=== PATIENT | male | born 1990 | race American Indian/Alaskan Native ===

== ENCOUNTER 2021-12-29 17:07 | Emergency (ER) | payer SELFPAY ==
[2021-12-29 18:49] VITALS: BP 122/61
== END 2021-12-29 23:10 | disposition left against medical advice (07) ==
LOC: ED 17:07
DX: T62.91XA Toxic effect of unspecified noxious substance eaten as food, accidental (unintentional), initial encounter (principal); Z53.21 Procedure and treatment not carried out due to patient leaving prior to being seen by health care provider; Y92.89 Other specified places as the place of occurrence of the external cause